=== PATIENT | male | born 1995 | race African-American/Black ===

== ENCOUNTER 2023-07-16 22:41 | Inpatient (IN) | payer MEDICAID ==
[~2023-07-16] VITALS: Ht 195.6 cm; Wt 75.7 kg
[2023-07-17 00:36] LABS: PH,URINE DRUG SCREEN 5.5 (5.0-8.0)
[2023-07-17 00:41] LABS: ALCOHOL, URINE DRUG SCREEN POSITIVE (NEGATIVE); AMPHET/METH SCREEN,URINE NEGATIVE (NEGATIVE); BARBITURATE SCREEN, URINE NEGATIVE (NEGATIVE); BENZODIAZEPINES SCREEN,URINE NEGATIVE (NEGATIVE); CANNABINOID SCREEN,URINE POSITIVE (NEGATIVE); COCAINE SCREEN,URINE NEGATIVE (NEGATIVE); METHADONE SCREEN, URINE NEGATIVE (NEGATIVE); OPIATE SCREEN,URINE NEGATIVE (NEGATIVE); PHENCYCLIDINE SCREEN,URINE NEGATIVE (NEGATIVE)
[2023-07-17] MEDS ORDERED: ZOLPIDEM TARTRATE 10 MG TABLET PO PRN (00:45)
[2023-07-17 08:52] LABS: COVID AG,FIA SOURCE NASAL SWAB
[2023-07-17 08:54] LABS: EOSINOPHILS % (AUTO) 3.1 % (1.0-6.0); HEMATOCRIT 41.5 % (41-53); HEMOGLOBIN 13.8 g/dL (13.5-17.5); LYMPHOCYTES # (AUTO) 2.2 K/uL (1.0-4.8); LYMPHOCYTES % (AUTO) 32.2 % (22.0-44.0); MEAN CORPUSCULAR HEMOGLOBIN 30.6 pg (26.0-34.0); MEAN CORPUSCULAR HGB CONC 33.1 G/dL (31.0-37.0); MEAN CORPUSCULAR VOLUME 92 fL (80-100); MONOCYTES # (AUTO) 0.9 K/uL (0.1-1.0); MONOCYTES % (AUTO) 12.6 % (2.0-9.0); NEUTROPHILS # (AUTO) 3.5 K/uL (1.8-7.7); NEUTROPHILS % (AUTO) 51.1 % (40.0-70.0); PLATELET COUNT (AUTO) 238 K/uL (150-450); RED BLOOD CELL COUNT(AUTO) 4.49 MIL/uL (4.50-5.90); RED CELL DISTRIBUTION WIDTH 13.3 % (11.5-14.5); WHITE BLOOD COUNT (AUTO) 6.9 K/uL (4.5-11.0)
[2023-07-17 09:04] LABS: ANION GAP 10 mmol/L (8-16); CALCIUM, TOTAL 9.2 mg/dL (8.8-10.5); CARBON DIOXIDE 25 mmol/L (22-29); CHLORIDE 103 mmol/L (98-107); CREATININE 0.88 mg/dL (0.60-1.30); GLOMERULAR FILTR. RATE CALC > 60 mL/min (>60); GLUCOSE,RANDOM 88 mg/dL (70-110); SODIUM SERUM 138 mmol/L (136-145); UREA NITROGEN, BLOOD 8 mg/dL (7-18)
[2023-07-17 09:13] LABS: ALCOHOL, BLOOD (SERUM) < 3 mg/dL (0-10)
[2023-07-17 09:15] LABS: APPEARANCE,URINE CLEAR (CLEAR); BILIRUBIN,URINE NEGATIVE (NEGATIVE); COLOR,URINE LIGHT YELLOW (YELLOW); GLUCOSE, URINE (UA) NEGATIVE (NEGATIVE); KETONES,URINE NEGATIVE (NEGATIVE); LEUKOCYTE ESTERASE ,URINE NEGATIVE (NEGATIVE); NITRATE,URINE NEGATIVE (NEGATIVE); OCCULT BLOOD,URINE NEGATIVE (NEGATIVE); PROTEIN,URINE NEGATIVE (NEGATIVE); SPECIFIC GRAVITIY, URINE 1.015 (1.003-1.030); UROBILINOGEN,URINE <=1.0 mg/dL (<=1.0)
[2023-07-17 09:16] LABS: SARS-COV2 (COVID) ANTIGEN,FIA Negative (Negative)
[2023-07-17 09:18] LABS: ALANINE AMINOTRANSFERASE 22 U/L (12-78); ALBUMIN 4.1 g/dL (3.4-5.0); ALKALINE PHOSPHATASE 69 U/L (46-116); ASPARTATE AMINOTRANSFERASE 25 U/L (15-37); BILIRUBIN,TOTAL 0.7 mg/dL (0.1-1.0); TOTAL PROTEIN, SERUM 7.4 g/dL (6.4-8.2)
[2023-07-17] MEDS ORDERED: IBUPROFEN 600 MG TABLET PO ONE (10:15)
[2023-07-17] MEDS ORDERED: IBUPROFEN 600 MG TABLET ONE (10:19)
[2023-07-17] MEDS: LORazepam 2 MG TABLET PO PRN (10:20)
[2023-07-17] MEDS: QUEtiapine FUMARATE 100 MG TABLET PO PRN (10:20)
[2023-07-17] MEDS ORDERED: MAG HYDROX/ALUMINUM HYD/SIMETH ES 30 ML SUSPENSION UDCUP PO PRN (15:30)
[2023-07-17] MEDS ORDERED: PROMETHAZINE HCL 25 MG TABLET PO PRN (15:30)
[2023-07-17] MEDS ORDERED: MAGNESIUM HYDROXIDE SUSPENSION 30 ML UDCUP PO PRN (15:30)
[2023-07-17] MEDS ORDERED: HydrOXYzine PAMOATE 50 MG CAPSULE PO PRN (15:30)
[2023-07-17] MEDS ORDERED: LOPERAMIDE HCL 2 MG CAPSULE PO PRN (15:30)
[2023-07-17] MEDS ORDERED: GuaiFENesin/D-METHORPHAN [SUGAR-FREE] 200-20MG/10 ML SYRUP UDCUP PO PRN (15:30)
[2023-07-17] MEDS ORDERED: TUBERCULIN, PURIFIED PROTEIN DERIVATIVE 5 TU/0.1 ML SYRINGE ID ONE (15:30)
[2023-07-17] MEDS: THIAMINE 100 MG TABLET PO SCH (17:00)
[2023-07-17 19:31] VITALS: BP 130/75; PULSE 73; RESP 18; TEMP 97.7; O2SAT 98
[2023-07-17] MEDS: MELATONIN 5 MG TABLET PO SCH (21:00)
[2023-07-17 21:28] VITALS: BP 120/60; PULSE 75; RESP 18; TEMP 97; O2SAT 96
[2023-07-18] MEDS: THIAMINE 100 MG TABLET PO SCH ×2 (08:10→16:06)
[2023-07-18] MEDS: MULTIVITAMINS WITH MINERALS, THERAPEUTIC TABLET PO SCH (08:10)
[2023-07-18] MEDS: OMEGA-3/DHA/EPA/FISH OIL 1,000 MG CAPSULE PO SCH (08:10)
[2023-07-18] MEDS: NALTREXONE HCL 50 MG TABLET PO SCH (08:10)
[2023-07-18] MEDS: FOLIC ACID 1 MG TABLET PO SCH (08:10)
[2023-07-18] MEDS: FLUoxetine HCL 20 MG CAPSULE PO SCH (08:10)
[2023-07-18] MEDS: DEXTROMETHORPHAN HBR/QUINIDINE 20/10 MG CAPSULE PO SCH (08:10)
[2023-07-18 08:26] VITALS: RESP 18
[2023-07-18] MEDS: QUEtiapine FUMARATE 100 MG TABLET PO PRN ×2 (08:26→16:06)
[2023-07-18] MEDS: ACETAMINOPHEN 325 MG TABLET PO PRN ×2 (08:26→16:10)
[2023-07-18] MEDS: LORazepam 2 MG TABLET PO PRN ×2 (08:26→16:06)
[2023-07-18 09:09] VITALS: BP 123/81; PULSE 71; RESP 18; TEMP 97.6; O2SAT 100
[2023-07-18 09:26] VITALS: RESP 18
[2023-07-18 16:10] VITALS: RESP 18
[2023-07-18 17:10] VITALS: RESP 18
[2023-07-18] MEDS: MELATONIN 5 MG TABLET PO SCH (20:33)
[2023-07-18] MEDS ORDERED: MELA5TAB40 PO (20:39)
[2023-07-18] MEDS ORDERED: FLUO20CA36 PO (20:39)
[2023-07-18] MEDS ORDERED: OMEG-135 PO (20:39)
[2023-07-18] MEDS ORDERED: QUET200T30 PO (20:39)
[2023-07-18] MEDS ORDERED: NALT50TA33 PO (20:39)
[2023-07-18] MEDS ORDERED: QUEtiapine FUMARATE 200 MG TABLET PO SCH (21:00)
[2023-07-18 22:09] VITALS: BP 118/68; PULSE 68; RESP 16; TEMP 98; O2SAT 96
[2023-07-19 08:17] VITALS: BP 138/87; PULSE 79; RESP 18; TEMP 97.4; O2SAT 100
[2023-07-19] MEDS: OMEGA-3/DHA/EPA/FISH OIL 1,000 MG CAPSULE PO SCH (08:31)
[2023-07-19] MEDS: MULTIVITAMINS WITH MINERALS, THERAPEUTIC TABLET PO SCH (08:31)
[2023-07-19] MEDS: THIAMINE 100 MG TABLET PO SCH (08:31)
[2023-07-19] MEDS: FLUoxetine HCL 20 MG CAPSULE PO SCH (08:32)
[2023-07-19] MEDS: DEXTROMETHORPHAN HBR/QUINIDINE 20/10 MG CAPSULE PO SCH (08:32)
[2023-07-19] MEDS: FOLIC ACID 1 MG TABLET PO SCH (08:32)
[2023-07-19] MEDS: NALTREXONE HCL 50 MG TABLET PO SCH (08:32)
[2023-07-19] MEDS: QUEtiapine FUMARATE 100 MG TABLET PO PRN (08:36)
[2023-07-19 08:38] LABS: HEMOGLOBIN A1C 5.2 % (3.8-5.6)
[2023-07-19 09:03] LABS: FREE T4 (FREE THYROXINE) 1.04 ng/dL (0.76-1.46); THYROID STIMULATING HORMONE 1.31 uIU/mL (0.36-3.74)
== END 2023-07-19 10:51 | disposition home or self-care (01) | DRG 751 ==
LOC: EMS 22:42 → B2S 07-17 11:36
PROVIDERS: ADMIT Psychiatry & Neurology Psychiatry; ATTEND Psychiatry & Neurology Psychiatry
PROC: 0HQFXZZ Repair Right Hand Skin, External Approach (ICD-10-PCS; principal; 2023-07-17)
PROC: GZHZZZZ Group Psychotherapy (ICD-10-PCS; 2023-07-17)
PROC: GZ51ZZZ Individual Psychotherapy, Behavioral (ICD-10-PCS; 2023-07-17)
DX: F32.2 Major depressive disorder, single episode, severe without psychotic features (principal); R45.851 Suicidal ideations; F17.210 Nicotine dependence, cigarettes, uncomplicated; F43.10 Post-traumatic stress disorder, unspecified; J45.909 Unspecified asthma, uncomplicated; I10 Essential (primary) hypertension; S61.210A Laceration without foreign body of right index finger without damage to nail, initial encounter; F90.9 Attention-deficit hyperactivity disorder, unspecified type; F12.20 Cannabis dependence, uncomplicated; S60.221A Contusion of right hand, initial encounter; Z20.822 Contact with and (suspected) exposure to COVID-19; F10.20 Alcohol dependence, uncomplicated; X78.1XXA Intentional self-harm by knife, initial encounter; Z55.9 Problems related to education and literacy, unspecified; Z59.9 Problem related to housing and economic circumstances, unspecified; Z63.9 Problem related to primary support group, unspecified; Z65.3 Problems related to other legal circumstances; Z88.0 Allergy status to penicillin; Z88.5 Allergy status to narcotic agent; Y93.89 Activity, other specified; Y92.89 Other specified places as the place of occurrence of the external cause; Y99.8 Other external cause status
CPT/HCPCS: 80053; 80061; 80307; 81003; 83036; 84439; 84443; 85025; 86592; 99285; G0480; Q9967

== ENCOUNTER 2023-07-18 11:52 | Emergency (ER) | payer MEDICAID ==
[~2023-07-18] VITALS: Ht 185.4 cm; Wt 113.6 kg
[2023-07-18 12:03] VITALS: TEMP 98.1
[2023-07-18 12:04] VITALS: BP 133/68; PULSE 69; RESP 18
[2023-07-18] MEDS ORDERED: DOXYCYCLINE HYCLATE 100 MG TABLET PO ONE (12:45)
[2023-07-18] MEDS ORDERED: OMEG-135 PO (20:39)
[2023-07-18] MEDS ORDERED: QUET200T30 PO (20:39)
[2023-07-18] MEDS ORDERED: MELA5TAB40 PO (20:39)
[2023-07-18] MEDS ORDERED: NALT50TA33 PO (20:39)
[2023-07-18] MEDS ORDERED: FLUO20CA36 PO (20:39)
== END 2023-07-18 15:23 | disposition home or self-care (01) ==
LOC: EMS 11:52
DX: S61.210A Laceration without foreign body of right index finger without damage to nail, initial encounter (principal); F32.9 Major depressive disorder, single episode, unspecified; J45.909 Unspecified asthma, uncomplicated; I10 Essential (primary) hypertension; F10.90 Alcohol use, unspecified, uncomplicated; Z88.0 Allergy status to penicillin; Z88.6 Allergy status to analgesic agent; Y90.9 Presence of alcohol in blood, level not specified; X58.XXXA Exposure to other specified factors, initial encounter; Y93.89 Activity, other specified; Y92.89 Other specified places as the place of occurrence of the external cause; Y99.8 Other external cause status
CPT/HCPCS: 99285; Z7502; Z7610